=== PATIENT | female | born 2000 | race Caucasian/White ===

== ENCOUNTER 2023-10-05 10:19 | Outpatient (CLI) | payer BC ==
[~2023-10-05] VITALS: Ht 165.1 cm; Wt 119.5 kg
[2023-10-05] MEDS ORDERED: PRENATAL TABLET PO (10:32)
[2023-10-05 10:45] VITALS: BP 143/101; PULSE 99; TEMP 98.4
--- NOTE | 2023-10-05 11:03 | NUR ---
Pt reports ambulatory to unit following fall at home. Pt reports she fell off the last step of her stairs, reports hitting only her side, denies hitting her belly. Pt denies contractions, leaking of fluid and vaginal bleeding. Pt reports some intermittent back pain and positive movement. Pt denies any other concerns at this time. EFM explained and placed, VS done, assessments complete. SVE by SUMI Garcia ft/50/-3. FHR Cat 1, contractions noted on tracing every 2-3 minutes. Pt reports feeling tightening when notified of contractions. Dr. Garces notified.
[2023-10-05] MEDS ORDERED: LR 1,000 ML IV PRN (11:15)
[2023-10-05 11:42] LABS: BASO # 0.1 K/mm3 (0.0-0.2); BASO % 0.6 % (0.0-2.0); EOS # 0.2 K/mm3 (0.0-0.7); EOS % 2.3 % (0.0-4.0); GRAN # 6.4 K/mm3 (1.4-6.5); GRAN % 69.9 % (42.2-75.2); HEMOGLOBIN 11.6 g/dl (12.5-16.0); LYMPH % 21.9 % (20.0-51.0); MEAN CELL VOLUME 79 fl (80.0-100.0); MEAN CORPUSCULAR HEMOGLOBIN 26 pg (27-31); MEAN CORPUSCULAR HGB CONC 33 g/dl (33.0-37.0); MEAN PLATELET VOLUME 11.2 fl (7.4-10.4); MONO # 0.5 K/mm3 (0.1-0.6); PLATELET COUNT 236 K/mm3 (130-400); RED BLOOD COUNT 4.51 M/mm3 (4.10-5.30); REDCELL DISTRIBUTION WIDTH-CV 13.7 % (11.5-14.5)
[2023-10-05 11:45] VITALS: BP 137/83; PULSE 87
[2023-10-05 11:51] LABS: HEMATOCRIT 35.5 % (37.0-47.0)
[2023-10-05 12:00] LABS: ALBUMIN 2.4 gm/dL (3.5-5.0); BILIRUBIN,TOTAL 0.7 mg/dL (0.2-1.2); CALCIUM 8.4 mg/dL (8.4-10.2); CREATININE, serum 0.6 mg/dL (0.57-1.11); POTASSIUM 3.9 mmol/L (3.5-4.5); TOTAL PROTEIN 6.4 gm/dL (6.2-8.1)
--- NOTE | 2023-10-05 12:03 | NUR ---
1200 Mili CARUOS visualizes strip, BP's and CBC lab results. CMP results still pending at this time
[2023-10-05 12:05] VITALS: BP 136/85; PULSE 90
--- NOTE | 2023-10-05 12:16 | NUR ---
PT GIVEN BOTH WRITTEN AND VERBAL DISCHARGE INSTRUCTIONS. PT INSTRUCTED TO CALL/COME BACK IF PT NOTICES ANY LOF, VB, STRONG/REGULAR CTX, DFM, CHILDRESS, VISUAL DISTURBANCES, OR ANY OTHER CHANGES/CONCERNS. PT VERBALIZES UNDERSTANDING AND HAS NO QUESTIONS AT THIS TIME
--- NOTE | 2023-10-05 12:20 | NUR ---
1200 ELINA CARUSO GIVES VERBAL ORDERS TO DISCHARGE PT HOME AND FOLLOW UP IN OFFICE TOMORROW
== END 2023-10-05 12:17 | disposition home or self-care (01) ==
LOC: LDRO 10:19
PROVIDERS: Obstetrics & Gynecology
DX: O9A.213 Injury, poisoning and certain other consequences of external causes complicating pregnancy, third trimester (principal); R29.6 Repeated falls; Z3A.38 38 weeks gestation of pregnancy